=== PATIENT | female | born 1960 | race Caucasian/White ===

== ENCOUNTER 2016-12-12 10:15 | Outpatient (CLI) | payer OTHER ==
--- NOTE | 2016-12-12 12:44 | DIAGNOSTIC IMAGING REPORT ---
PROCEDURE: XR KNEE INJECTION (PRE MR) INDICATION: RT KNEE JOINT PAIN TECHNIQUE: The patient was advised of the usual risks and complications including infection, bleeding, and allergy. Supine position. Following sterile preparation and 1% lidocaine anesthetic, fluoroscopic guidance (1.9 minutes, 148.59 mGy) was utilized to place a 22-gauge needle into the lateral right knee patellofemoral joint. A 20.1 ml solution (5 ml Isovue 200, 5 ml 1% lidocaine, 10 ml normal saline, 0.1 ml gadolinium) was infused. Subsequently, 2 mL 40 mg/mL Kenalog was infused and the needle was withdrawn. Rajat wrap applied in the suprapatellar region (immediately removed following images). COMPARISON: None. FINDINGS: Five AP and lateral views. Confirmation of intraarticular injection. There are mild degenerative changes of the medial lateral compartments. The patient tolerated the procedure reasonably well and was transferred to MRI in satisfactory condition with instructions to resume routine activity the following day, and to call for any untoward symptoms (increasing pain/swelling). IMPRESSION: 1. Successful fluoroscopically guided diagnostic/therapeutic injection of the right knee joint (pre MRI). 2. MR arthrography is pending.
--- NOTE | 2016-12-12 16:32 | DIAGNOSTIC IMAGING REPORT ---
PROCEDURE: MR LOWER EXT JOINT W/CONT-RT INDICATION: Posterior lateral right knee pain. Recent knee surgery (medial meniscectomy). TECHNIQUE: Intraarticular contrast (gadolinium) injected earlier in the day. PD and FAT-SAT PD sagittal and coronal images. FAT-SAT PD axial images. High-resolution T2 sagittal images of the cruciate ligaments. FAT-SAT T1 sagittal, axial, and coronal images were obtained. (Total of 9 sequences). COMPARISON: Comparison is made to noncontrast MRI of the right knee on 05/03/1960 FINDINGS: Interim partial medial meniscectomy with small residual anterior and posterior remnants. There is moderate to marked chondromalacia of the posterior aspect of the medial compartment. Medial collateral ligament is normal. Lateral meniscus and lateral collateral ligament are normal. Mild chondromalacia degenerative changes of the lateral compartment. There is thickening and edema of the anterior cruciate ligament (intact). Posterior cruciate ligament is normal. Mild chondromalacia the medial facet of the right patellofemoral joint. Quadriceps and patellar tendons are normal. Superior plica of the suprapatellar recess (incidental finding). IMPRESSION: 1. Interim sub total medial meniscectomy with small residual remnants of the posterior and anterior horns. 2. 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 3. Thickening and edema of the anterior cruciate ligament consistent with prior injury or chronic stress changes (intact). 4. Mild chondromalacia and degenerative changes of the lateral compartment and right patellofemoral joint. 5. Superior plica in the suprapatellar recess (incidental finding).
== END 2016-12-12 23:00 ==
LOC: XR SRH 10:15
PROC: BQ0 Imaging, Non-Axial Lower Bones, Plain Radiography (ICD-10-PCS; principal; 2016-12-12)
DX: M22.41 Chondromalacia patellae, right knee (principal); M17.11 Unilateral primary osteoarthritis, right knee; Z98.890 Other specified postprocedural states